=== PATIENT | male | born 1995 | race Two or more races ===

== ENCOUNTER 2023-10-09 09:25 | Emergency (ER) | payer OTHER, MEDICAID ==
[~2023-10-09] VITALS: Ht 172.7 cm; Wt 117.0 kg
[2023-10-09] MEDS ORDERED: OXCARBAZEPINE 150 MG TABLET PO ONE (10:00)
[2023-10-09] MEDS ORDERED: ACETAMINOPHEN ES 500 MG TABLET PO ONE (10:00)
[2023-10-09] MEDS ORDERED: ACETAMINOPHEN ES 500 MG TABLET ONE (10:08)
[2023-10-09] MEDS ORDERED: OXCARBAZEPINE 150 MG TABLET ONE (10:08)
[2023-10-09 11:12] VITALS: BP 115/68; TEMP 98.2; O2SAT 98
== END 2023-10-09 11:13 | disposition home or self-care (01) ==
LOC: ER 09:28
DX: G40.909 Epilepsy, unspecified, not intractable, without status epilepticus (principal); E11.9 Type 2 diabetes mellitus without complications
CPT/HCPCS: 82962-TC